=== PATIENT | female | born 1985 | race Caucasian/White ===

== ENCOUNTER 2017-07-17 16:58 | Emergency (ER) | payer OTHER ==
[~2017-07-17] VITALS: Ht 165.1 cm; Wt 118.5 kg
[~2017-07-17 16:58] MED LIST: METR-105 PO; METR-163 PO; TOPI25TA99 PO
[2017-07-17 17:02] VITALS: TEMP 36.9; Ht 165.1 cm; Wt 118.5 kg
[2017-07-17] MEDS ORDERED: SODIUM CHLORIDE 0.9% 1000ML 1,000 ML IV STA (17:28)
[2017-07-17] MEDS ORDERED: PROCHLORPERAZINE 5 MG/ML 2 ML VIAL IV STA (17:28)
[2017-07-17] MEDS ORDERED: DiphenhydrAMINE HCL 50 MG/ML VIAL IV STA (17:28)
[2017-07-17] MEDS ORDERED: FLUT1INH INH (17:58)
[2017-07-17] MEDS ORDERED: TRAZ50TA35 PO (17:58)
[2017-07-17] MEDS ORDERED: DICL-201 PO (17:58)
[2017-07-17] MEDS ORDERED: ALBINSX NEB (17:58)
[2017-07-17] MEDS ORDERED: DEXT1LIQ80 (17:58)
[2017-07-17 18:05] LABS: BUN/CREATININE RATIO 18.6 (10-20); CALCIUM 8.7 mg/dl (8.5-10.1); CREATININE 0.62 mg/dl (0.60-1.20); POTASSIUM 3.9 mmol/L (3.5-5.1)
[2017-07-17 18:50] VITALS: BP 108/85; PULSE 87; O2SAT 97
--- NOTE | 2017-07-17 23:39 | EMERGENCY ROOM VISIT NOTE ---
History Report prepared by Billie: Pretty Anguiano Under the Supervision of: Dr. Pipe Zuluaga M.D. First contact with patient: 17:22 Chief Complaint: HEADACHE Stated Complaint: MIGRAINE, BLURRY VISION, VOMITING History of Present Illness The patient is a 32 year old female who presents to the Emergency Room with complaints of a persistent migraine headache that began yesterday. She currently rates her discomfort as a 9/10 in severity. The patient localizes her headache to the frontal part of her head. She states that her vision is blurry and notes that light worsens her headache. The patient states that she has been vomiting since yesterday, noting a burning pain when she vomits. She describes her headache as feeling like a bomb is about to go off. The patient reports a history of seizures, noting that her migraines trigger her seizures. She states that her migraine today feels similar to her previous migraines. The patient denies any recent illness or head injury. She denies any chance of , noting a previous tubal ligation. Source of History: patient Onset: yesterday Position: head Symptom Intensity: 9/10 Timing: other (persistent) Modifying Factors (Worsening): other (light) Associated Symptoms: + vomiting, No fevers Review of Systems See HPI for pertinent positives & negatives. A total of 10 systems reviewed and were otherwise negative. Past Medical & Surgical Medical Problems: (1) Chronic lumbar pain (2) Left rotator cuff tear arthropathy (3) Miscarriage within last 12 months (4) Obesity Family History Cancer Gallbladder disease Heart disease Social History Smoking Status: Current Every Day Smoker Alcohol Use: none Marital Status: single Housing Status: lives with significant other Occupation Status: unemployed Current/Historical Medications Scheduled Albuterol Sulf (Albuterol Sulfate), Unknown Dose NEB QID Fluticasone Furoate-Vilanterol (Breo Ellipta), 1 PUFF INH DAILY Topiramate (Topamax ), 50 MG PO BID Trazodone Hcl (Trazodone), 50 MG PO HS Scheduled PRN Diclofenac (Voltaren), 75 MG PO BID PRN for Miscellaneous Medications Dextromethorphan Polistirex (Cough Dm), Unknown Dose Allergies Coded Allergies: Levetiracetam (Unverified Allergy, Severe, "SEVERE SEIZURE", 07/17/17) Penicillins (Verified Allergy, Severe, ANAPHYLAXIS, 07/17/17) Ketorolac Tromethamine (Unverified Allergy, Unknown, ITCHY, 07/17/17) Physical Exam Vital Signs Date Time Temp Pulse Resp B/P (MAP) Pulse Ox O2 Delivery O2 Flow Rate FiO2 07/17/17 18:50 87 17 108/85 97 07/17/17 17:02 36.9 93 18 113/73 98 Room Air Physical Exam Constitutional: Vital signs reviewed. Eyes: Pupils are equal round reactive to light. Conjunctiva are noninjected. ENT: Pharynx is clear without erythema or exudate. Mucous membranes are moist. Neck supple without meningeal signs. Respiratory: Clear to auscultation bilaterally. Breath sounds are equal bilaterally. Cardiovascular: Regular rate and rhythm. No rubs or gallops. GI: Soft, nondistended and nontender. Bowel sounds are present. Musculoskeletal: No peripheral edema. No lower extremity tenderness. Integumentary: No cyanosis. Neurological: The patient is awake and alert. Cranial nerves II-XII are intact. Motor is 5 out of 5 all extremities. Sensation is intact to light touch all extremities. Normal speech. No pronator drift. Psychiatric: Normal affect. Medical Decision & Procedures Laboratory Results 07/17/17 17:35 Test 07/17/17 17:35 Anion Gap 8.0 mmol/L (3-11) Est Creatinine Clear Calc Drug Dose 167.8 ml/min Estimated GFR () 138.3 Estimated GFR (Non- 119.3 BUN/Creatinine Ratio 18.6 (10-20) Calcium Level 8.7 mg/dl (8.5-10.1) Laboratory results as reviewed by me. Medications Administered Medications (Trade) Dose Ordered Sig/Juliocesar Route Start Time Stop Time Status Last Admin Dose Admin Sodium Chloride 1,000 ml @ 999 mls/hr Q1H1M STAT IV 07/17/17 17:28 07/17/17 18:28 DC 07/17/17 18:14 999 MLS/HR Prochlorperazine Edisylate (Compazine Inj) 10 mg NOW STAT IV 07/17/17 17:28 07/17/17 17:29 DC 07/17/17 18:12 10 MG Diphenhydramine HCl (Benadryl Inj) 50 mg NOW STAT IV 07/17/17 17:28 07/17/17 17:29 DC 07/17/17 18:12 50 MG ED Course 172: The patient was evaluated in room C1B. A complete history and physical exam was performed. 172: Ordered Benadryl Inj 50 mg IV, Compazine Inj 10 mg IV, Sodium Chloride 1000 ml @ 999 mls/hr IV. 181: I reevaluated the patient and I discussed the test results with her. She is just getting her medication now. 184: I reevaluated the patient and she feels great. I discussed the treatment plan with her and she verbalized complete understanding and agreement. She is ready for discharge. Medical Decision This is a 32-year-old female presents with a headache and vomiting. Differential diagnosis includes migraine headache, tension headache, dehydration , electrolyte abnormality, cluster headache. I did perform a limited focused review of portions of the patient's old chart on the electronic medical record. The patient was here in March of 2016 and lied to the provider about receiving Percocet from [place]. I did evaluate the patient as noted above. The patient is presenting with a headache consistent with her prior migraine headaches. She has no fever or head injury. I have no reason to suspect intracranial hemorrhage or meningitis. She is neurologically intact. IV access was established. I did treat the patient with normal saline, Benadryl and Compazine IV. I did reassess the patient. She stated that she felt "great" and was ready to go home. She was discharged in good condition. Medication Reconcilliation Current Medication List: was personally reviewed by me Blood Pressure Screening Patient's blood pressure: Normal blood pressure Blood pressure disposition: Did not require urgent referral Impression Primary Impression: Migraine without aura Scribe Attestation The scribe's documentation has been prepared under my direct and personally reviewed by me in its entirety. I confirm that the note above accurately reflects all work, treatment, procedures, and medical decision making performed by me. Departure Information Dispostion Home / Self-Care Referrals Vidal Hampton PA-C (PCP) Forms HOME CARE DOCUMENTATION FORM, IMPORTANT VISIT INFORMATION Patient Instructions My [facility] Problem Qualifiers Primary Impression: Migraine without aura Status migrainosus presence: without status migrainosus Intractability: not intractable Qualified Codes: G43.009 - Migraine without aura, not intractable , without status migrainosus
== END 2017-07-17 18:50 | disposition home or self-care (01) ==
LOC: C.EDB 17:01 → C.EDC 18:50
DX: G43.009 Migraine without aura, not intractable, without status migrainosus (principal); M54.5 Low back pain; G89.29 Other chronic pain; E66.9 Obesity, unspecified; F17.210 Nicotine dependence, cigarettes, uncomplicated; Z80.9 Family history of malignant neoplasm, unspecified; Z83.79 Family history of other diseases of the digestive system; Z82.49 Family history of ischemic heart disease and other diseases of the circulatory system